=== PATIENT | female | born 2000 ===

== ENCOUNTER 2021-02-23 05:47 | Inpatient (IN) | payer OTHER ==
[2021-02-23] MEDS ORDERED: LIDOCAINE 0.5% (PF) 5 MG/ML (50 ML SDV) SQ PRN (06:11)
[2021-02-23] MEDS ORDERED: CARBOPROST TROMETHAMINE 250 MCG/ML 1 ML AMP IM PRN (06:11)
[2021-02-23] MEDS ORDERED: TERBUTALINE 1 MG/ML VIAL SQ PRN (06:11)
[2021-02-23] MEDS ORDERED: OXYTOCIN 10 UNIT/ML 1 ML VIAL IM PRN (06:11)
[2021-02-23] MEDS ORDERED: OXYTOCIN 30 UNITS/500 ML NS 30 UNIT in SALINE 1 500ML.BAG IV SCH ×2 (06:11→21:45)
[2021-02-23] MEDS ORDERED: METHYLERGONOVINE 0.2 MG/ML 1 ML AMP IM PRN (06:11)
--- NOTE | 2021-02-23 06:30 | P.HPOB ---
History of Present Illness H&P Date: 02/23/21 Chief Complaint: Requested induction of labor This patient is a pleasant 21-year-old 1 para 0 female estimated date of confinement 02/25/2021 estimated gestational age 39-5/7 weeks' who presents to labor and delivery for requested induction of labor. Patient's care has been uncomplicated. We were watching for excessive growth however most recent ultrasound showed the baby to be 7 lbs. 12 oz., Which is normal. Patient now has a favorable cervix and is uncomfortable requested induction of labor. Review of Systems Genitourinary: Reports Menstruation: Reports amenorrhea Past Medical History Past Medical History: No Reported History Additional Past Surgical History / Comment(s): Oral surgery. Past Anesthesia/Blood Transfusion Reactions: No Reported Reaction Past Psychological History: No Psychological Hx Reported Smoking Status: Never smoker Past Alcohol Use History: None Reported Past Drug Use History: None Reported Medications and Allergies Home Medications Medication Instructions Recorded Confirmed Type Pnv,Calcium 72/Iron/Folic Acid 1 tab PO DAILY 02/23/21 02/23/21 History [ Plus Tablet] Allergies Allergy/AdvReac Type Severity Reaction Status Date / Time No Known Allergies Allergy Verified 02/23/21 06:10 Exam Intake and Output 02/22/21 02/22/21 02/23/21 14:59 22:59 06:59 Other: Weight 130.181 kg - OBG Physical Exam Abdomen: bowel sounds normal, no diffuse tenderness, no bruit present, no guarding noted, no hepatomegaly, no splenomegaly, no mass Vulva: both: normal Vagina: normal moisture, no discharge Cervix: no lesion (350% -2 station.), no discharge Uterus: enlarged Results blood work shows she is A+, rubella immune, RPR nonreactive, hepatitis B negative, HIV is nonreactive, Glucola was normal, group B strep was negative, anatomy ultrasounds have been normal, most recent ultrasound 1 week ago showed 7 lbs. 12 oz. which is a 78th percentile. Assessment and Plan Assessment: This is a pleasant 21-year-old 1 para 0 female 39-5/7 weeks gestation who is admitted to labor and delivery for requested induction of labor. Plan is induction of labor and anticipate vaginal delivery. (1) 39 weeks gestation of Current Visit: Yes Status: Acute Code(s): Z3A.39 - 39 WEEKS GESTATION OF SNOMED Code(s): 45128644 (2) Elective induction of labor planned Current Visit: Yes Status: Acute Code(s): TCW9293 - SNOMED Code(s): 044939801
[2021-02-23 06:34] LABS: Basophils % (A) 0 %; Eosinophils # (A) 0.1 k/uL (0-0.7); Eosinophils % (A) 1 %; HCT 35.4 % (34.0-46.0); HGB 12.2 gm/dL (11.4-16.0); Lymphocytes # (A) 1.8 k/uL (1.0-4.8); Lymphocytes % (A) 18 %; MCH 27.9 pg (25.0-35.0); MCHC 34.5 g/dL (31.0-37.0); MCV 80.9 fL (80.0-100.0); Monocytes # (A) 0.5 k/uL (0-1.0); Monocytes % (A) 5 %; Neutrophils # (A) 7.8 k/uL (1.3-7.7); Neutrophils % (A) 75 %; Platelet Count 230 k/uL (150-450); RBC 4.38 m/uL (3.80-5.40); RDW 14.9 % (11.5-15.5); WBC 10.4 k/uL (4.0-11.0)
[2021-02-23] MEDS: LACTATED RINGERS 1,000 ML IV SCH ×2 (06:39→18:15)
[2021-02-23] MEDS ORDERED: ROPIVACAINE 100 MG, fentaNYL (PF). 200 MCG in SODIUM CHLORIDE 0.9% 76 ML EPIDURAL ONE (19:19)
[2021-02-23] MEDS ORDERED: CITRIC ACID-SODIUM CITRATE 15 ML CUP PO ONE (20:21)
[2021-02-23] MEDS ORDERED: ceFAZolin 3 GM in SODIUM CHLORIDE 0.9% 100 ML IVPB ONE (20:21)
[2021-02-23] MEDS ORDERED: KETOROLAC 15 MG/ML 1 ML VIAL ONE (20:50)
[2021-02-23] MEDS ORDERED: OXYTOCIN 10 UNIT/ML 1 ML VIAL ONE (20:50)
[2021-02-23] MEDS ORDERED: ONDANSETRON 4 MG/2 ML VIAL ONE (20:50)
[2021-02-23] MEDS ORDERED: MORPHINE SULFATE (PF) 0.3 MG/0.3 ML SYR ONE (20:50)
[2021-02-23] MEDS ORDERED: fentaNYL (PF) 50 MCG/ML 2 ML AMP ONE (20:50)
[2021-02-23] MEDS ORDERED: LIDOCAINE 2% SYG (PF) 100 MG/5 ML ONE (20:50)
[2021-02-23] MEDS ORDERED: SIMETHICONE 80 MG CHEWABLE PO PRN (21:36)
[2021-02-23] MEDS ORDERED: diphenhydrAMINE 25 MG CAP PO PRN (21:36)
[2021-02-23] MEDS ORDERED: NALOXONE 0.4 MG/ML 1 ML VIAL IV PRN (21:36)
[2021-02-23] MEDS ORDERED: METOCLOPRAMIDE 5 MG/ML 2 ML VIAL IVP PRN (21:36)
[2021-02-23] MEDS ORDERED: diphenhydrAMINE 50 MG/ML 1 ML VIAL IVP PRN (21:36)
[2021-02-23] MEDS ORDERED: ZOLPIDEM 5 MG TAB PO PRN (21:36)
[2021-02-23] MEDS ORDERED: LANOLIN CREAM 5 GM TUBE TOPICAL PRN (21:36)
[2021-02-23] MEDS ORDERED: KETOROLAC 15 MG/ML 1 ML VIAL IVP PRN (21:36)
[2021-02-23] MEDS ORDERED: ONDANSETRON 4 MG/2 ML VIAL IVP PRN (21:36)
--- NOTE | 2021-02-23 21:48 | P.OP ---
Date of Procedure: 02/23/21 Preoperative Diagnosis: #1: 39-5/7 week intrauterine . #2: Failure to progress in labor. Postoperative Diagnosis: Same Procedure(s) Performed: Primary low transverse section Anesthesia: epidural Surgeon: Fredrick Mike Digital Editor #1: Katherine Stauffer Estimated Blood Loss (ml): 550 Pathology: none sent Condition: stable Disposition: floor Indications for Procedure: Please see dictated H&P for intimate details of this patient's admission. Brief summary this is a pleasant 21-year-old 1 para 0 female estimated gestational age 39-5/7 weeks who presents to labor and delivery for requested induction of labor. On admission patient is 3 cm dilated has artificial rupture membranes for clear fluid. Labor is induced with Pitocin per protocol. Patient progresses to approximately 5 or 6 and was started gets an epidural. Patient do es not progress beyond 7 cm and has failure of descent head beyond -2 station. At this time I discuss with the family and the patient discuss proceeding with section for delivery. Patient does understand this procedure and risks and risks of infection, bleeding, possible injury bowel, bladder, vessels, other organs. All the patient's questions are answered written consent obtained. Operative Findings: This is a vigorous viable male infant Apgars 8 and 9 delivery time is 2106 hrs. Description of Procedure: This patient has a Rizo catheter placed to straight drain. She subsequently taken to the operating room where the epidural is dosed up for sufficient level of surgery. Patient has abdominal prep and drape. Scalpels and taken Pfannenstiel skin incision is then made. A second scalpel is taken down the fascia and the fascia scored with a knife. Fascial incision extended bilaterally using the Sidhu scissors. Fascial incision extended bilaterally using the Sidhu scissors. The rectus muscles are the peritoneum identified and entered sharply. Peritoneal incision extended superior and inferior without difficulty. Bladder blade is then placed. Bladder peritoneum was then developed sharply with Metzenbaum scissors. Using a scalpel low transverse uterine incision is made. Using a hemostat I enter the uterine cavity bluntly. There is loss of clear fluid. This incision extended bluntly. Infant's head is thought to be transverse orientation. It is easily delivered through the incision with fundal pressure. Mouth and nares are bulb suctioned. There is a nuchal cord 1. With continued fundal pressure the deliver the rest this infant's body. Is a vigorous viable male infant Apgars are 8 and 9 delivery time is 21 6 hours. After delivery of the infant the umbilical cord is doubly clamped and cut infant is handed off to the nurses in attendance. Placenta is then manually extracted intact. Uterus is then externalized and all tissue removed uterine cavity. Uterine incision demarcated with Daniel clamps and closed using 0 Vicryl running locked fashion 2 layers. Excellent hemostasis is noted. Bladder peritoneum was then reapproximated using a 3-0 Vicryl. Excess fluid is removed from the abdomen and pelvis. Uterus tubes and ovaries all appear normal for term gestation. Uterus placed back into the abdomen. Parietal peritoneum was then closed using 0 Vicryl running fashion. Rectus muscles reapproximated Vicryl interrupted fashion. Fascial incision is closed using 0 PDS. Fascial incision is intact and hemostatic. Subcutaneous tissues and closed using a 3-0 Vicryl. Skin is and closed using liliane. All counts are correct 3. There are no complications. Infant and mother are taken together birthing suite in satisfactory condition.
[2021-02-24] MEDS: ceFAZolin 3 GM in SODIUM CHLORIDE 0.9% 100 ML IVPB SCH ×2 (05:01→13:46)
--- NOTE | 2021-02-24 05:49 | P.PNOBGPC ---
Subjective - Subjective Patient reports: Reports appetite normal, Reports voiding normally, Reports pain well controlled, Reports ambulating normally : doing well Objective - Vital Signs Latest vital signs: Vital Signs Temp Pulse Resp BP Pulse Ox 02/24/21 04:00 98.8 F 75 16 112/67 98 02/23/21 23:37 72 16 121/66 97 02/23/21 23:07 70 16 129/74 97 02/23/21 22:40 80 16 115/70 97 02/23/21 22:25 77 16 114/68 98 02/23/21 22:10 78 16 122/66 100 02/23/21 21:55 85 16 119/68 98 02/23/21 21:40 98.5 F 78 16 113/62 98 02/23/21 07:19 97.2 F L 80 16 130/83 97 Intake and Output 02/23/21 02/23/21 02/24/21 14:59 22:59 06:59 Output Total 536 736 Balance -536 -736 Output: Urine 200 Estimated Blood Loss 536 536 Other: Voiding Method Indwelling Catheter # Voids 3 0 Weight 130.181 kg - Exam Lungs: bilateral: normal Chest: Normal S1, Normal S2 Extremities: Present: normal Abdomen: Present: normal appearance, soft. Absent: distention, tenderness Incision: Present: normal, dry, intact Uterus: Present: normal, firm - Labs Labs: Abnormal Lab Results - Last 24 Hours (Table) 02/23/21 Range/Units 06:15 Neutrophils # 7.8 H (1.3-7.7) k/uL Assessment and Plan Assessment: Post operative day #1. Patient is resting without complaints. Vital signs are stable she's afebrile. Uterus is firm nontender and she is having normal lochia. Incision is intact and dry. CBC is pending. My impression is a normal post operative course. Plan is to continue routine postoperative care, check CBC, encourage ambulation, allow patient to shower. (1) 39 weeks gestation of Current Visit: Yes Status: Acute Code(s): Z3A.39 - 39 WEEKS GESTATION OF SNOMED Code(s): 97736368 (2) Elective induction of labor planned Current Visit: Yes Status: Acute Code(s): [id number] - SNOMED Code(s): 350217354
--- NOTE | 2021-02-24 06:17 | P.PN ---
Progress Note - Text Date:02/24/21 Time:549 Patient is status post . Patient seen this morning with VAS score of 3. c/o of pruritus, no c/o nausea/vomiting, comfortable and doing well.
[2021-02-24 07:18] LABS: Basophils % (A) 0 %; Eosinophils # (A) 0.1 k/uL (0-0.7); Eosinophils % (A) 1 %; HCT 28.5 % (34.0-46.0); Lymphocytes # (A) 1.2 k/uL (1.0-4.8); Lymphocytes % (A) 11 %; MCH 27.4 pg (25.0-35.0); MCHC 33.8 g/dL (31.0-37.0); MCV 81.3 fL (80.0-100.0); Monocytes # (A) 0.5 k/uL (0-1.0); Monocytes % (A) 5 %; Neutrophils # (A) 8.7 k/uL (1.3-7.7); Neutrophils % (A) 82 %; Platelet Count 188 k/uL (150-450); RBC 3.51 m/uL (3.80-5.40); RDW 14.8 % (11.5-15.5); WBC 10.6 k/uL (4.0-11.0)
[2021-02-24 07:32] LABS: HGB 9.6 gm/dL (11.4-16.0)
[2021-02-24] MEDS: ACETAMINOPHEN TAB 500 MG TAB PO PRN ×2 (07:45→23:49)
[2021-02-24] MEDS: SENNOSIDES-DOCUSATE SODIUM 1 EACH TAB PO PRN ×2 (07:46→20:41)
[2021-02-24] MEDS: LACTATED RINGERS 1,000 ML IV SCH ×2 (09:34)
[2021-02-24] MEDS: IBUPROFEN 600 MG TAB PO PRN ×2 (10:51→20:41)
[2021-02-25] MEDS: IBUPROFEN 600 MG TAB PO PRN ×2 (02:57→08:40)
[2021-02-25] MEDS: ACETAMINOPHEN TAB 500 MG TAB PO PRN (06:24)
[2021-02-25 09:24] VITALS: BP 120/63; PULSE 78; RESP 16; TEMP 97.7
--- NOTE | 2021-02-25 10:08 | P.DS ---
Providers Date of admission: 02/23/21 05:47 Expected date of discharge: 02/25/21 Attending physician: Fredrick Mike Primary care physician: Stated None - Discharge Diagnosis(es) (1) Status post primary low transverse section Current Visit: Yes Status: Acute Hospital Course: Patient presents for induction of labor. She underwent a primary low transverse for failure to progress. Postoperative course was uncomplicated. She denies nausea, vomiting, chest pain, shortness of breath or calf pain. Her incision is clean, dry, intact with liliane. She'll be discharged home postoperative day #2 in stable condition to follow-up with Dr. Mike in one week. Plan - Discharge Summary New Discharge Prescriptions: New Ibuprofen [Motrin] 600 mg PO Q6H PRN #30 tab PRN Reason: Pain oxyCODONE HCL [OxyIR] 5 mg PO Q4HR PRN #18 tab PRN Reason: Pain No Action Pnv,Calcium 72/Iron/Folic Acid [ Plus Tablet] 1 tab PO DAILY Discharge Medication List Pnv,Calcium 72/Iron/Folic Acid [ Plus Tablet] 1 tab PO DAILY 02/23/21 [History] Ibuprofen [Motrin] 600 mg PO Q6H PRN #30 tab 02/24/21 [Rx] oxyCODONE HCL [OxyIR] 5 mg PO Q4HR PRN #18 tab 02/24/21 [Rx] Follow up Appointment(s)/Referral(s): Fredrick Mike MD [STAFF PHYSICIAN] - 04/04/21 10:30 am (Please see me February at 10:15 a.m. for an incision check.) Patient Instructions/Handouts: (DC) Activity/Diet/Wound Care/Special Instructions: No strenuous activity or heavy lifting for 6 weeks. No intercourse or anything per vagina for 6 weeks. Please call if any fever, chills, excessive vaginal bleeding, and/or abdominal pain. Discharge Disposition: HOME SELF-CARE
== END 2021-02-25 14:30 | disposition home or self-care (01) | DRG 788 ==
LOC: 4FBP 05:47
PROVIDERS: ADMIT Obstetrics & Gynecology; ATTEND Obstetrics & Gynecology
PROC: 10D00Z1 Extraction of Products of Conception, Low, Open Approach (ICD-10-PCS; principal; 2021-02-23 20:45)
DX: O32.4XX0 Maternal care for high head at term, not applicable or unspecified (principal); O62.2 Other uterine inertia; Z37.0 Single live birth; Z3A.39 39 weeks gestation of pregnancy
CPT/HCPCS: 85025; 86850; 86900; 86901

== ENCOUNTER 2022-02-07 17:34 | Emergency (ER) | payer OTHER ==
[2022-02-07 19:35] LABS: Appearance,Urine Cloudy (Clear); Bilirubin,Urine Negative (Negative); Blood,Urine Negative (Negative); Color,Urine Yellow; Glucose,Urine (UA) Negative (Negative); Ketones,Urine 3+ (Negative); Leukocyte Esterase,Urine Negative (Negative); Mucus,Urine Rare /hpf; Nitrite,Urine Negative (Negative); PH, Urine 6.5 (5.0-8.0); Protein,Urine Negative (Negative); RBC,Urine 1 /hpf (0-5); Squamous Epithelial Cell,Urine 9 /hpf (0-4); Urobilinogen,Urine <2.0 mg/dL (<2.0); WBC,Urine 2 /hpf (0-5)
--- NOTE | 2022-02-07 20:56 | US ---
EXAMINATION TYPE: Transabdominal DATE OF EXAM: 02/07/2022 8:36 PM COMPARISON: NONE CLINICAL HISTORY: r/o ectopic. Patient states her PCP sent her to r/o ectopic. Pt denies vaginal blee ding. Patient states she has experienced some cramping. Hx (A0). Patient states she had an ultrasound last week but nothing was seen. EXAM PERFORMED: Transvaginal (TV) and Transabdominal (TA) EXAM MEASUREMENTS: GESTATIONAL AGE / DATING Physician Established: Not yet established Dates by LMP: (8 weeks/1 days) EDC: 12/12/21 Dates by First Scan: No previous this is first scan Dates by Current Scan for: (5 weeks/6 days) EDC: 09/18/22 MATERNAL ANATOMY Uterus: 10.6 x 6.8 x 7.2 cm Right Ovary: 2.7 x 2.0 x 1.7 cm (best seen transabdominally) Left Ovary: 2.8 x 1.6 x 2.1 cm (best seen transabdominally) Post CDS / Adnexa: wnl Presence of free fluid: no Presence of corpus luteal cyst: no Presence of subchorionic bleed: no GESTATION / SURVEY CRL: 0.26 cm (5 weeks/6 days) MSD: appears wnl Yolk Sac (normal less than 6mm): 0.37 cm Heart Rate: 126 bpm Rhythm: normal IUP: Viable IUP Date of LMP: 12/12/21 Beta HcG (if available): Not available at this time IMPRESSION: Early intrauterine . The gestational age is 5 weeks and 6 days according to the crown-rump l ength.
[2022-02-07 21:11] LABS: Basophils % (A) 0 %; Eosinophils # (A) 0.1 k/uL (0-0.7); Eosinophils % (A) 1 %; HCT 40.7 % (34.0-46.0); HGB 13.7 gm/dL (11.4-16.0); Lymphocytes # (A) 0.4 k/uL (1.0-4.8); Lymphocytes % (A) 4 %; MCH 28.3 pg (25.0-35.0); MCHC 33.7 g/dL (31.0-37.0); MCV 83.8 fL (80.0-100.0); Mean Platelet Volume 8.1; Monocytes # (A) 0.3 k/uL (0-1.0); Monocytes % (A) 3 %; Neutrophils # (A) 10.1 k/uL (1.3-7.7); Neutrophils % (A) 92 %; Platelet Count 209 k/uL (150-450); RBC 4.86 m/uL (3.80-5.40); RDW 14.9 % (11.5-15.5)
[2022-02-07] MEDS ORDERED: SODIUM CHLORIDE 0.9% 1,000 ML IV ONE (21:12)
[2022-02-07] MEDS ORDERED: ONDANSETRON 4 MG/2 ML VIAL IVP STA (21:12)
[2022-02-07 21:22] LABS: ALT 24 U/L (4-34); AST 24 U/L (14-36); African American GFR (CKD) >90 (>60 ml/min/1.73 sqM); Alkaline Phosphatase 68 U/L (38-126); Anion Gap 6 mmol/L; Blood Urea Nitrogen 6 mg/dL (7-17); Calcium 8.3 mg/dL (8.4-10.2); Carbon Dioxide 22 mmol/L (22-30); Chloride 104 mmol/L (98-107); Glucose 105 mg/dL (74-99); Non-African American GFR(CKD) >90 (>60 ml/min/1.73 sqM); Potassium 3.9 mmol/L (3.5-5.1); Sodium 132 mmol/L (137-145); Total Bilirubin 0.7 mg/dL (0.2-1.3)
--- NOTE | 2022-02-07 21:23 | ED ---
General Adult HPI - General Chief complaint: OB/Uterine Contractions Stated complaint: Sent by Pcp Possible ectopic Time Seen by Provider: 02/07/22 21:15 Source: patient, RN notes reviewed, old records reviewed Mode of arrival: ambulatory Limitations: no limitations - History of Present Illness Initial comments: This is a 21-year-old female who states that she was seen by her [employer] and sent for an ultrasound to rule out ectopic . She denies any pelvic pain or vaginal bleeding. She does have low back pain. She is a with a 1-year-old son. Patient states that she has had nausea but no vomiting. She has had a decreased oral intake. She denies any fevers or dysuria. Patient was evaluated in triage. Location: back (lower) Quality: aching Associated Symptoms: nausea/vomiting (no vomiting) - Related Data Home Medications Medication Instructions Recorded Confirmed Pnv,Calcium 72/Iron/Folic Acid 1 tab PO DAILY 02/23/21 02/23/21 [ Plus Tablet] Previous Rx's Medication Instructions Recorded Ibuprofen [Motrin] 600 mg PO Q6H PRN #30 tab 02/24/21 oxyCODONE HCL [OxyIR] 5 mg PO Q4HR PRN #18 tab 02/24/21 Allergies Allergy/AdvReac Type Severity Reaction Status Date / Time No Known Allergies Allergy Verified 02/07/22 19:00 Review of Systems ROS Statement: Those systems with pertinent positive or pertinent negative responses have been documented in the HPI. ROS Other: All systems not noted in ROS Statement are negative. Past Medical History Past Medical History: No Reported History History of Any Multi-Drug Resistant Organisms: None Reported Past Surgical History: Section Additional Past Surgical History / Comment(s): Oral surgery. Past Anesthesia/Blood Transfusion Reactions: No Reported Reaction Past Psychological History: No Psychological Hx Reported Smoking Status: Never smoker Past Alcohol Use History: None Reported Past Drug Use History: None Reported - Past Family History Mother Family Medical History: Cancer General Exam Limitations: no limitations General appearance: alert, in no apparent distress Eye exam: Present: normal appearance. Absent: scleral icterus, conjunctival injection Respiratory exam: Present: normal lung sounds bilaterally. Absent: respiratory distress, accessory muscle use, decreased breath sounds Cardiovascular Exam: Present: regular rate GI/Abdominal exam: Present: soft. Absent: tenderness Back exam: Present: other (Low mid back pain). Absent: tenderness, CVA tenderness (R), CVA tenderness (L) Neurological exam: Present: alert, oriented X3 Psychiatric exam: Present: normal affect, normal mood Skin exam: Present: warm, dry, intact, normal color. Absent: cyanosis, diaphoretic Course Vital Signs 02/07/22 02/07/22 18:57 22:16 Temperature 99.9 F H Pulse Rate 91 Respiratory 0 L 16 Rate Blood Pressure 133/76 O2 Sat by Pulse 100 Oximetry Medical Decision Making - Medical Decision Making Patient sent by her [employer] for rule out ectopic . She denies any vaginal bleeding. Ultrasound shows early intrauterine with a gestational age of approximately 5 weeks and 6 days with heart rate 126. HCGs 48628.4. Patient's blood type is A+. There is no evidence of leukocytosis hemoglobin and hemato crit are stable. Electrolytes are unremarkable. UA shows 3+ ketones, no protein. No evidence of urinary tract infection. Blood pressure was mildly elevated upon arrival, asymptomatic. She will be referred to her [employer] and primary care doctor for reevaluation of hypertension. - Lab Data Result diagrams: 02/07/22 20:56 02/07/22 20:56 Lab Results 02/07/22 02/07/22 02/07/22 Range/Units 19:13 19:13 20:56 WBC 11.0 (4.0-11.0) k/uL RBC 4.86 (3.80-5.40) m/uL Hgb 13.7 (11.4-16.0) gm/dL Hct 40.7 (34.0-46.0) % MCV 83.8 (80.0-100.0) fL MCH 28.3 (25.0-35.0) pg MCHC 33.7 (31.0-37.0) g/dL RDW 14.9 (11.5-15.5) % Plt Count 209 (150-450) k/uL MPV 8.1 Neutrophils % 92 % Lymphocytes % 4 % Monocytes % 3 % Eosinophils % 1 % Basophils % 0 % Neutrophils # 10.1 H (1.3-7.7) k/uL Lymphocytes # 0.4 L (1.0-4.8) k/uL Monocytes # 0.3 (0-1.0) k/uL Eosinophils # 0.1 (0-0.7) k/uL Basophils # 0.0 (0-0.2) k/uL Sodium (137-145) mmol/L Potassium (3.5-5.1) mmol/L Chloride (98-107) mmol/L Carbon Dioxide (22-30) mmol/L Anion Gap mmol/L BUN (7-17) mg/dL Creatinine (0.52-1.04) mg/dL Est GFR (CKD-EPI)AfAm (>60 ml/min/1.73 sqM) Est GFR (CKD-EPI)NonAf (>60 ml/min/1.73 sqM) Glucose (74-99) mg/dL Calcium (8.4-10.2) mg/dL Total Bilirubin (0.2-1.3) mg/dL AST (14-36) U/L ALT (4-34) U/L Alkaline Phosphatase (38-126) U/L Total Protein (6.3-8.2) g/dL Albumin (3.5-5.0) g/dL HCG, Quant mIU/mL Urine Color Yellow Urine Appearance Cloudy H (Clear) Urine pH 6.5 (5.0-8.0) Ur Specific [place] 1.020 (1.001-1.035) Urine Protein Negative (Negative) Urine Glucose (UA) Negative (Negative) Urine Ketones 3+ H (Negative) Urine Blood Negative (Negative) Urine Nitrite Negative (Negative) Urine Bilirubin Negative (Negative) Urine Urobilinogen <2.0 (<2.0) mg/dL Ur Leukocyte Esterase Negative (Negative) Urine RBC 1 (0-5) /hpf Urine WBC 2 (0-5) /hpf Ur Squamous Epith Cells 9 H (0-4) /hpf Urine Mucus Rare H (None) /hpf Urine HCG, Qual Detected (Not Detectd) 02/07/22 Range/Units 20:56 WBC (4.0-11.0) k/uL RBC (3.80-5.40) m/uL Hgb (11.4-16.0) gm/dL Hct (34.0-46.0) % MCV (80.0-100.0) fL MCH (25.0-35.0) pg MCHC (31.0-37.0) g/dL RDW (11.5-15.5) % Plt Count (150-450) k/uL MPV Neutrophils % % Lymphocytes % % Monocytes % % Eosinophils % % Basophils % % Neutrophils # (1.3-7.7) k/uL Lymphocytes # (1.0-4.8) k/uL Monocytes # (0-1.0) k/uL Eosinophils # (0-0.7) k/uL Basophils # (0-0.2) k/uL Sodium 132 L (137-145) mmol/L Potassium 3.9 (3.5-5.1) mmol/L Chloride 104 (98-107) mmol/L Carbon Dioxide 22 (22-30) mmol/L Anion Gap 6 mmol/L BUN 6 L (7-17) mg/dL Creatinine 0.56 (0.52-1.04) mg/dL Est GFR (CKD-EPI)AfAm >90 (>60 ml/min/1.73 sqM) Est GFR (CKD-EPI)NonAf >90 (>60 ml/min/1.73 sqM) Glucose 105 H (74-99) mg/dL Calcium 8.3 L (8.4-10.2) mg/dL Total Bilirubin 0.7 (0.2-1.3) mg/dL AST 24 (14-36) U/L ALT 24 (4-34) U/L Alkaline Phosphatase 68 (38-126) U/L Total Protein 7.0 (6.3-8.2) g/dL Albumin 4.0 (3.5-5.0) g/dL HCG, Quant 47838.4 mIU/mL Urine Color Urine Appearance (Clear) Urine pH (5.0-8.0) Ur Specific [place] (1.001-1.035) Urine Protein (Negative) Urine Glucose (UA) (Negative) Urine Ketones (Negative) Urine Blood (Negative) Urine Nitrite (Negative) Urine Bilirubin (Negative) Urine Urobilinogen (<2.0) mg/dL Ur Leukocyte Esterase (Negative) Urine RBC (0-5) /hpf Urine WBC (0-5) /hpf Ur Squamous Epith Cells (0-4) /hpf Urine Mucus (None) /hpf Urine HCG, Qual (Not Detectd) Disposition Clinical Impression: , Dehydration, Ketonuria, Hypertension Disposition: HOME SELF-CARE Condition: Good Instructions (If sedation given, give patient instructions): (ED), Dehydration (ED) Additional Instructions: Increase your fluid intake. Follow-up with your [employer] as scheduled. Return to the emergency room with any new or concerning symptoms including pain, fevers or persistent nausea/vomiting. Is patient prescribed a controlled substance at d/c from ED?: No Referrals: Arline Lerma DO [Primary Care Provider] - 1-2 days Time of Disposition: 23:28
[2022-02-07 22:03] LABS: HCG,Quantitative Serum 21173.4 mIU/mL
[2022-02-07] MEDS ORDERED: ACETAMINOPHEN TAB 500 MG TAB PO STA (23:33)
[2022-02-07 23:38] VITALS: BP 109/43; PULSE 92; RESP 18; TEMP 102.3
== END 2022-02-07 23:45 | disposition home or self-care (01) ==
LOC: EC 17:34
DX: O26.891 Other specified pregnancy related conditions, first trimester (principal); E86.0 Dehydration; R82.4 Acetonuria; I10 Essential (primary) hypertension; Z3A.00 Weeks of gestation of pregnancy not specified
CPT/HCPCS: 36415; 80053; 85025; 81001; 81025; 84702; 87502; 87635; 76801; 76817; 99284; 96374; 96361; J2405